=== PATIENT | female | born 1995 | race Caucasian/White ===

== ENCOUNTER 2016-05-14 15:38 | Observation (INO) | payer MEDICAID ==
[2016-05-14 18:18] VITALS: BP 122/75; PULSE 100; O2SAT 98
== END 2016-05-14 17:10 | disposition home or self-care (01) ==
LOC: MED SURG 15:38
PROVIDERS: ADMIT Family Medicine; ATTEND Family Medicine
DX: Z34.03 Encounter for supervision of normal first pregnancy, third trimester (principal)
CPT/HCPCS: 80307; G0378

== ENCOUNTER 2016-05-26 07:34 | Inpatient (IN) | payer MEDICAID ==
[2016-05-26] MEDS ORDERED: Lactated Ringers 2,000 ML IV ONE (07:59)
[2016-05-26] MEDS ORDERED: SUBLIMAZE 100 MCG/2 ML IV ONE (08:00)
[2016-05-26] MEDS ORDERED: Marcaine Spinal Ampul IJ ONE (08:00)
[2016-05-26] MEDS ORDERED: Astramorph-Pf 5 MG/10 ML IV ONE (08:00)
[2016-05-26] MEDS ORDERED: BICITRA 30 ML CUP PO SCH (08:15)
[2016-05-26] MEDS ORDERED: Reglan 10 MG/2 ML IV SCH (08:15)
[2016-05-26] MEDS ORDERED: Pepcid 20 MG VIAL IV SCH (08:15)
[2016-05-26 08:29] LABS: Mean Cell Volume 96.2 fl (78-100); Mean Platelet Volume 12.3 fl (6-9.5); Platelet Count 135 K/mm3 (150-450); Red Blood Count 3.16 M/mm3 (4.1-5.4); Red Cell Distribution Width 12.5 % (11.5-14.0); White Blood Count 15.1 K/mm3 (4.0-10.5)
[2016-05-26] MEDS ORDERED: Sensorcaine 0.25% 10 ML IJ ONE (08:35)
[2016-05-26] MEDS ORDERED: Nubain 10 MG/ML IV PRN (08:36)
[2016-05-26] MEDS ORDERED: XYLOCAINE 1% HCL 20 ML MDV IJ PRN (08:36)
[2016-05-26] MEDS ORDERED: TYLENOL EXTRA STRENGTH 500 MG PO PRN ×2 (08:36→11:09)
[2016-05-26] MEDS ORDERED: STADOL 2 MG IV PRN (08:36)
[2016-05-26] MEDS ORDERED: Zofran 4 MG/2 ML VIAL IV PRN (08:36)
[2016-05-26] MEDS ORDERED: Phenergan 25 MG INJ IV PRN (08:36)
[2016-05-26 08:42] LABS: Mean Corpuscular Hemoglobin 32.5 pg (26-32)
[2016-05-26 08:51] LABS: INR 1.03 (0.8-3.0); PROTIME 11.5 SECONDS (9.95-12.35)
[2016-05-26] MEDS ORDERED: Lactated Ringers 1,000 ML IV SCH (09:00)
[2016-05-26] MEDS ORDERED: PITOCIN 30 UNITS/ LR 500 ML 500 ML IV SCH (09:00)
[2016-05-26] MEDS: Lactated Ringers 1,000 ML IV SCH (09:14)
[2016-05-26 09:27] LABS: COMPLETE URINE MICROSCOPIC? YES
[2016-05-26 09:29] LABS: WBC 15-25 /HPF (0-5)
[2016-05-26 09:30] LABS: Bacteria MODERATE /HPF (NEGATIVE); Epithelial Cells MANY /HPF (FEW)
[2016-05-26] MEDS ORDERED: Anucort-HC SUPPOSITORY PR PRN (11:09)
[2016-05-26] MEDS ORDERED: TUCKS TP PRN (11:09)
[2016-05-26] MEDS ORDERED: Adacel Vial IM ONE (11:09)
[2016-05-26] MEDS ORDERED: MOTRIN 400 MG PO PRN (11:09)
[2016-05-26] MEDS ORDERED: Restoril 15 MG PO PRN (11:09)
[2016-05-26] MEDS ORDERED: Tylenol #3 Tablet PO PRN (11:09)
[2016-05-26] MEDS ORDERED: LANSINOH 40 GM TOP PRN (11:09)
[2016-05-26] MEDS ORDERED: Ambien 10 MG PO PRN (11:09)
[2016-05-26] MEDS ORDERED: Dulcolax 10 MG SUPP PR PRN (11:09)
[2016-05-26] MEDS ORDERED: Dermoplast Spray TP PRN (11:09)
[2016-05-26] MEDS ORDERED: CORTISONE 1% CREAM TP PRN (11:09)
[2016-05-26] MEDS: Colace 100 MG PO SCH (21:09)
[2016-05-27 05:44] LABS: BASOPHIL % 0.1 % (0.0-0.4); Eosinophil % 0.4 % (0.00-5.0); Granulocytes % 72.7 % (36.0-66.0); Lymphocytes % 17.4 % (24.0-44.0); Mean Cell Volume 98.3 fl (78-100); Mean Platelet Volume 12.6 fl (6-9.5); Monocytes % 9.4 % (0.0-12.0); Platelet Count 130 K/mm3 (150-450); Red Blood Count 2.87 M/mm3 (4.1-5.4); White Blood Count 14.1 K/mm3 (4.0-10.5)
[2016-05-27 05:48] LABS: Mean Corpuscular Hemoglobin 32.7 pg (26-32)
[2016-05-27] MEDS: FERREX 150 PO SCH (10:55)
[2016-05-27] MEDS: Colace 100 MG PO SCH ×2 (10:55→21:35)
[2016-05-28] MEDS: FERREX 150 PO SCH (09:56)
[2016-05-28] MEDS: Colace 100 MG PO SCH (09:56)
[2016-05-28 12:10] VITALS: BP 119/81; PULSE 104; O2SAT 98
== END 2016-05-28 12:30 | disposition home or self-care (01) | DRG 775 ==
LOC: OBSVTOIN 07:34 → OB 07:34
PROVIDERS: ADMIT Family Medicine; ATTEND Family Medicine
PROC: 10E0XZZ Delivery of Products of Conception, External Approach (ICD-10-PCS; principal; 2016-05-26)
DX: O42.92 Full-term premature rupture of membranes, unspecified as to length of time between rupture and onset of labor (principal); Z3A.38 38 weeks gestation of pregnancy; Z37.0 Single live birth
CPT/HCPCS: 36415; 62322; 80307; 81000; 85025; 85027; 85610; 85730; 86850; 86900; 86901; 90715; G0378; J2274; J2590; J3010

== ENCOUNTER 2019-05-05 18:19 | Emergency (ER) | payer OTHER ==
[2019-05-05 18:39] VITALS: BP 126/88; O2SAT 99
[2019-05-05] MEDS ORDERED: Pepcid 20 MG VIAL IV ONE ×2 (18:44→18:58)
[2019-05-05] MEDS ORDERED: solu-CORTEF 250MG IV ONE (18:45)
--- NOTE | 2019-05-05 18:50 | ERPHSYRPT ---
- History of Present Illness Time Seen by Provider: 05/05/19 18:46 Source: patient, family Exam Limitations: no limitations Patient Subjective Stated Complaint: pt here for allergic reaction after eating at [employer] about an hour ago . pt took 2 benadryls at home Triage Nursing Assessment: pt alert, walked in, resp easy, skin warm, dry, red, itching Physician History: patient here for allergic reaction after eating at [employer] about an hour ago . pt took 2 benadryls at home, c/o flushed skin on face and arms. no shortness of breath Timing/Duration: today Severity: moderate Associated Symptoms: denies symptoms Allergies/Adverse Reactions: Penicillins Allergy (Verified 05/05/19 18:39) Hx Tetanus, Diphtheria Vaccination/Date Given: No Hx Influenza Vaccination/Date Given: No Hx Pneumococcal Vaccination/Date Given: No Immunizations Up to Date: Yes - Review of Systems Constitutional: No Fever, No Chills Eyes: No Symptoms Ears, Nose, & Throat: No Symptoms Respiratory: No Cough, No Dyspnea, No Stridor, No Wheezing Cardiac: No Chest Pain, No Edema, No Syncope Abdominal/Gastrointestinal: No Abdominal Pain, No Nausea, No Vomiting, No Diarrhea Genitourinary Symptoms: No Dysuria Musculoskeletal: No Back Pain, No Neck Pain Skin: Pruritis, Rash Neurological: No Dizziness, No Focal Weakness, No Sensory Changes Psychological: No Symptoms Endocrine: No Symptoms All Other Systems: Reviewed and Negative - Past Medical History Pertinent Past Medical History: No - Past Surgical History Past Surgical History: No - Social History Smoking Status: Never smoker Exposure to second hand smoke: No Drug Use: none Patient Lives Alone: No - Female History Hx Last Menstrual Period: 3 weeks Hx Now: No - Nursing Vital Signs Nursing Vital Signs: Initial Vital Signs Temperature 97.2 F 05/05/19 18:32 Pulse Rate 104 H 05/05/19 18:32 Respiratory Rate 20 05/05/19 18:32 Blood Pressure 126/88 05/05/19 18:32 O2 Sat by Pulse Oximetry 97 05/05/19 18:32 Pain Scale Pain Intensity 0 - Physical Exam General Appearance: no apparent distress, alert Eye Exam: PERRL/EOMI, eyes nml inspection Ears, Nose, Throat Exam: normal ENT inspection, TMs normal, pharynx normal, moist mucous membranes Neck Exam: normal inspection, non-tender, supple, full range of motion Respiratory Exam: normal breath sounds, lungs clear, No respiratory distress Cardiovascular Exam: regular rate/rhythm, normal heart sounds, normal peripheral pulses Gastrointestinal/Abdomen Exam: soft, normal bowel sounds, No tenderness, No mass Back Exam: normal inspection, normal range of motion, No CVA tenderness, No vertebral tenderness Extremity Exam: normal inspection, normal range of motion, pelvis stable Neurologic Exam: alert, oriented x 3, cooperative, normal mood/affect, nml cerebellar function, nml station & gait, sensation nml, No motor deficits Skin Exam: normal color, warm, dry, rash Lymphatic Exam: No adenopathy SpO2: 99 - Course Nursing assessment & vital signs reviewed: Yes Ordered Tests: Medication Summary Generic Name Dose Route Start Last Admin Trade Name Freq PRN Reason Stop Dose Admin Hydrocortisone Sodium Succinate 250 mg 05/05/19 18:45 Solu-Cortef 250mg IV 05/05/19 18:46 ONCE ONE Discontinued Medications Generic Name Dose Route Start Last Admin Trade Name Freq PRN Reason Stop Dose Admin Famotidine 20 mg 05/05/19 18:44 Pepcid 20 Mg Vial IV 05/05/19 18:45 STAT ONE - Progress Progress: improved Counseled pt/family regarding: diagnosis, need for follow-up - Departure Departure Disposition: Home Clinical Impression: Food allergic skin reaction Allergic reaction to food Qualifiers: Encounter type: initial encounter Qualified Code(s): T78.1XXA - Other adverse food reactions, not elsewhere classified, initial encounter Condition: Stable Critical Care Time: No Referrals: BRANNON GREEN [Primary Care Provider] - Instructions: Food Allergy Additional Instructions: Discharge/Care Plan UMBERTOGABRIELLEBENYCOLLINS ROSS was seen on 05/05/19 in the Emergency Room. The patient was counseled regarding Diagnosis,Lab results, Imaging studies, need for follow up and when to return to the Emergency Room. Prescriptions given: Discharge Note I have spoken with the patient and/or caregivers. I have explained the patient' s condition, diagnosis and treatment plan based on the information available to me at this time. I have answered the patient's and/or caregiver's questions and addressed any concerns. The patient and/or caregivers have as good understanding of the patient's diagnosis, condition and treatment plan as can be expected at this point. The vital signs have been stable. The patient's condition is stable and appropriate for discharge from the emergency department. The patient will pursue further outpatient evaluation with the primary care physician or other designated or consulting physician as outlined in the discharge instructions. The patient and/or caregivers are agreeable to this plan of care and follow-up instructions have been explained in detail. The patient and/or caregivers have received these instruction. The patient/and or caregivers are aware that any significant change in condition or worsening of symptoms should prompt an immediate return to this or the closest emergency department or call 911. UMBERTOBENY ROSS was seen on 05/05/19 n the Emergency Room. At that time you were treated for an emergent condition, during your visit Laboratory, Radiology and/or other procedures may have been ordered. It is very important that you follow-up with your Primary Care Physician BRANNON GREEN within the next 24-48 hours to review your Emergency Room visit and the final results of testing that was ordered. Some test results such as Urine Cultures, Blood Cultures, and other cultures if ordered will not be finalized for 24-48 hours. If you do not have a Primary Care Provider please call the medical records department at [phone] ext [phone] to obtain a copy of your results or you may sign into our patient portal to obtain these results by visiting us @ [email or web address] and completing the following steps: 1. Click on the Patient Portal link 2. Click the Patient Self Enrollment Link to complete the enrollment form and entering your 3. Once the enrollment form is completed you will receive an email with a temporary ID and password at the email address you provided. 4. Next choose a user name and password. Your user name must be at least 4 characters long and your password must be at least 4 characters long. 5. Choose a security question from the list and provide your answer to the question. If you already have signed into the Health Portal you may access your Health Care Information 18/10 by the following steps: 1. Login to our website @ [email or web address] 2. Enter your original user name and password. FAQS The [facility] Health Portal is an online tool that contains your Lab Results, Radiology Reports, Visit History, Discharge Instructions and Health Summary Lab and Radiology Results will not be available for 72 hours on the portal. The Portal is a secure site, passwords are encryted and URLs are re-written so they cannot be copied and pasted. You and authorized family members are the only ones who can access your Portal. Also there is a timeout feature that protects your information if you leave the Portal page open. If you have technical difficulty please use the Contact Us link on the page this will allow you to submit any questions you have regarding the Portal or you may contact the Medical Record Department at [phone] ext [phone]. Prescriptions: Methylprednisolone Packet [Medrol Dosepack] 4 mg PO UD #30 packet Famotidine 20 mg [Pepcid 20 MG] 20 mg PO BID #60 tablet
[2019-05-05] MEDS ORDERED: solu-CORTEF 250MG ONE (18:59)
[2019-05-05 20:01] VITALS: PULSE 84
== END 2019-05-05 20:01 | disposition home or self-care (01) ==
LOC: ED 18:19
DX: T78.1XXA Other adverse food reactions, not elsewhere classified, initial encounter (principal)
CPT/HCPCS: 36000; 96374; 96375; 99284; J1720